=== PATIENT | male | born 1965 | race Caucasian/White ===

== ENCOUNTER 2018-08-30 06:09 | Inpatient (IN) | payer MEDICAID, OTHER ==
[~2018-08-30] VITALS: Ht 170.2 cm; Wt 77.1 kg
[~2018-08-30 06:09] MED LIST: AMLO-511 PO; ARGI500T4 PO; ARIP10TA8 PO; ASCO500 PO; IBUP-2070 PO; LISI-662 PO; LORA10TA7 PO; ONDA4 PO; [UNRECOGNIZED DRUG - CODE] PO; [UNRECOGNIZED DRUG - CODE] PO
[2018-08-30] MEDS ORDERED: RISP2 PO (06:47)
[2018-08-30 07:36] LABS: BASOPHILS % (AUTO) 0.9 % (0.0-2.0); EOSINOPHILS % (AUTO) 1.5 % (1.0-6.0); HEMATOCRIT 39.9 % (41-53); HEMOGLOBIN 13.6 g/dL (13.5-17.5); LYMPHOCYTES # (AUTO) 1.7 K/uL (1.0-4.8); LYMPHOCYTES % (AUTO) 28.7 % (22.0-44.0); MEAN CORPUSCULAR HEMOGLOBIN 30.9 pg (26.0-34.0); MEAN CORPUSCULAR HGB CONC 34.1 G/dL (31.0-37.0); MEAN CORPUSCULAR VOLUME 91 fL (80-100); MONOCYTES # (AUTO) 0.7 K/uL (0.1-1.0); NEUTROPHILS # (AUTO) 3.5 K/uL (1.8-7.7); NEUTROPHILS % (AUTO) 57.9 % (40.0-70.0); PLATELET COUNT (AUTO) 326 K/uL (150-450); RED CELL DISTRIBUTION WIDTH 13.2 % (11.5-14.5)
[2018-08-30 07:49] LABS: ANION GAP 8 mmol/L (8-16); CALCIUM, TOTAL 10.7 mg/dL (8.8-10.5); CARBON DIOXIDE 27 mmol/L (22-29); CHLORIDE 105 mmol/L (98-107); GLOMERULAR FILTR. RATE CALC > 60 mL/min (>60); GLUCOSE,RANDOM 107 mg/dL (70-110); POTASSIUM 3.8 mmol/L (3.5-5.1); SODIUM SERUM 140 mmol/L (136-145); UREA NITROGEN, BLOOD 14 mg/dL (7-18)
[2018-08-30 07:55] LABS: ALANINE AMINOTRANSFERASE 76 U/L (12-78); ALBUMIN 3.8 g/dL (3.4-5.0); ALKALINE PHOSPHATASE 77 U/L (46-116); ASPARTATE AMINOTRANSFERASE 40 U/L (15-37); BILIRUBIN,TOTAL 0.7 mg/dL (0.1-1.0); TOTAL PROTEIN, SERUM 7.7 g/dL (6.4-8.2)
[2018-08-30] MEDS ORDERED: IBUPROFEN 400 MG TABLET PO PRN ×2 (08:30→12:30)
[2018-08-30] MEDS ORDERED: HALOPERIDOL 5 MG TABLET PO PRN ×2 (08:30→09:15)
[2018-08-30] MEDS ORDERED: ZOLPIDEM TARTRATE 10 MG TABLET PO PRN (08:30)
[2018-08-30] MEDS ORDERED: ACETAMINOPHEN 325 MG TABLET PO PRN ×2 (08:30→12:30)
[2018-08-30] MEDS ORDERED: LORazepam 2 MG TABLET PO PRN (08:30)
[2018-08-30] MEDS ORDERED: PETROLATUM,WHITE 71 GM JELLY TP PRN (12:30)
[2018-08-30] MEDS ORDERED: ONDANSETRON HCL 4 MG TABLET PO PRN (12:30)
[2018-08-30] MEDS ORDERED: LOPERAMIDE HCL 2 MG CAPSULE PO PRN (12:30)
[2018-08-30] MEDS ORDERED: MAG HYDROX/AL HYDROX/SIMETH ES 30 ML SUSPENSION UDCUP PO PRN (12:30)
[2018-08-30] MEDS ORDERED: CloNIDine HCL 0.1 MG TABLET PO PRN (12:30)
[2018-08-30] MEDS ORDERED: DOCUSATE SODIUM 100 MG CAPSULE PO PRN (12:30)
[2018-08-30] MEDS ORDERED: ALBUTEROL SULFATE HFA 90 MCG/PUFF 8 GM INHALER IH PRN (12:30)
[2018-08-30] MEDS ORDERED: MAGNESIUM HYDROXIDE SUSPENSION 30 ML UDCUP PO PRN (12:30)
[2018-08-30] MEDS ORDERED: NICOTINE 14 MG/24 HOUR PATCH TD PRN (12:30)
[2018-08-30] MEDS ORDERED: GuaiFENesin/D-METHORPHAN [SUGAR-FREE] 200-20MG/10 ML SYRUP UDCUP PO PRN (12:30)
[2018-08-30] MEDS ORDERED: PNEUMOCOCCAL VACCINE POLYVALENT 0.5 ML VIAL [PPSV23] IM ONE (13:00)
[2018-08-30 13:25] VITALS: BP 116/74
[2018-08-30 16:15] VITALS: BP 115/85
[2018-08-30] MEDS: ZOLPIDEM TARTRATE 10 MG TABLET PO PRN (22:00)
[2018-08-31 06:11] VITALS: BP 126/79
[2018-08-31 08:35] LABS: BASOPHILS % (AUTO) 0.9 % (0.0-2.0); EOSINOPHILS % (AUTO) 5.2 % (1.0-6.0); HEMATOCRIT 39.3 % (41-53); HEMOGLOBIN 13.2 g/dL (13.5-17.5); LYMPHOCYTES # (AUTO) 1.7 K/uL (1.0-4.8); LYMPHOCYTES % (AUTO) 35.7 % (22.0-44.0); MEAN CORPUSCULAR HEMOGLOBIN 30.9 pg (26.0-34.0); MEAN CORPUSCULAR HGB CONC 33.5 G/dL (31.0-37.0); MEAN CORPUSCULAR VOLUME 92 fL (80-100); MONOCYTES # (AUTO) 0.7 K/uL (0.1-1.0); MONOCYTES % (AUTO) 13.6 % (2.0-9.0); NEUTROPHILS # (AUTO) 2.1 K/uL (1.8-7.7); NEUTROPHILS % (AUTO) 44.6 % (40.0-70.0); PLATELET COUNT (AUTO) 312 K/uL (150-450); RED BLOOD CELL COUNT(AUTO) 4.25 MIL/uL (4.50-5.90); RED CELL DISTRIBUTION WIDTH 13.4 % (11.5-14.5)
[2018-08-31] MEDS ORDERED: AmLODIPine BESYLATE 5 MG TABLET PO SCH (09:00)
[2018-08-31 09:30] LABS: AMPHET/METH SCREEN,URINE POSITIVE (NEGATIVE); BARBITURATE SCREEN, URINE NEGATIVE (NEGATIVE); BENZODIAZEPINES SCREEN,URINE NEGATIVE (NEGATIVE); CANNABINOID SCREEN,URINE NEGATIVE (NEGATIVE); COCAINE SCREEN,URINE NEGATIVE (NEGATIVE); METHADONE SCREEN, URINE NEGATIVE (NEGATIVE); OPIATE SCREEN,URINE NEGATIVE (NEGATIVE)
[2018-08-31 09:36] LABS: PHENCYCLIDINE SCREEN,URINE NEGATIVE (NEGATIVE)
[2018-08-31 09:41] LABS: ALANINE AMINOTRANSFERASE 63 U/L (12-78); ALKALINE PHOSPHATASE 70 U/L (46-116); ANION GAP 4 mmol/L (8-16); ASPARTATE AMINOTRANSFERASE 33 U/L (15-37); BILIRUBIN,TOTAL 0.5 mg/dL (0.1-1.0); CALCIUM, TOTAL 9.6 mg/dL (8.8-10.5); CARBON DIOXIDE 30 mmol/L (22-29); CHLORIDE 105 mmol/L (98-107); CHOL/HDL RATIO 2.2 (4.2-7.3); CHOLESTEROL 136 mg/dL (131-200); GLOMERULAR FILTR. RATE CALC > 60 mL/min (>60); GLUCOSE,RANDOM 76 mg/dL (70-110); HDL CHOLESTEROL 63 mg/dL (40-60); LDL CHOL (CALC.) 63 mg/dL (0-130); POTASSIUM 3.9 mmol/L (3.5-5.1); SODIUM SERUM 139 mmol/L (136-145); THYROID STIMULATING HORMONE 0.38 uIU/mL (0.36-3.74); TOTAL PROTEIN, SERUM 6.5 g/dL (6.4-8.2); TRIGLYCERIDES 51 mg/dL (15-150); UREA NITROGEN, BLOOD 16 mg/dL (7-18)
[2018-08-31 09:42] VITALS: BP 116/66
[2018-08-31 09:47] LABS: HEMOGLOBIN A1C 5.8 % (4.5-6.2)
[2018-08-31 09:53] LABS: APPEARANCE,URINE CLOUDY (CLEAR); BILIRUBIN,URINE NEGATIVE (NEGATIVE); GLUCOSE, URINE (UA) NEGATIVE (NEGATIVE); KETONES,URINE NEGATIVE (NEGATIVE); LEUKOCYTE ESTERASE ,URINE NEGATIVE (NEGATIVE); NITRATE,URINE NEGATIVE (NEGATIVE); OCCULT BLOOD,URINE NEGATIVE (NEGATIVE); PH,URINE 7.5 (5.0-8.0); PROTEIN,URINE NEGATIVE (NEGATIVE)
[2018-08-31 10:18] LABS: BACTERIA,URINE None Seen /HPF (None Seen); CALCIUM OXALATE CRYSTALS,UR Few /LPF (None Seen); RBC,URINE None Seen /HPF (0-2); SQUAMOUS EPITHELIAL CELL,UR Few /LPF (None Seen); WBC,URINE None Seen /HPF (0-5)
[2018-08-31] MEDS: ARIPiprazole 10 MG TABLET PO SCH (12:48)
[2018-08-31 17:34] VITALS: BP 131/69
[2018-08-31 20:10] VITALS: BP 125/82
[2018-08-31] MEDS: ZOLPIDEM TARTRATE 10 MG TABLET PO PRN (20:10)
[2018-09-01 01:41] VITALS: BP 121/87
[2018-09-01 08:07] VITALS: BP 134/81
[2018-09-01] MEDS: LISINOPRIL 20 MG TABLET PO SCH (08:35)
[2018-09-01] MEDS: ARIPiprazole 10 MG TABLET PO SCH (08:35)
[2018-09-01] MEDS: AmLODIPine BESYLATE 10 MG TABLET PO SCH (08:35)
[2018-09-01 16:11] VITALS: BP 120/82
[2018-09-01] MEDS: ZOLPIDEM TARTRATE 10 MG TABLET PO PRN (22:52)
[2018-09-02 00:48] VITALS: BP 112/65
[2018-09-02 08:20] VITALS: BP 136/85
[2018-09-02] MEDS: AmLODIPine BESYLATE 10 MG TABLET PO SCH (08:33)
[2018-09-02] MEDS: SERTRALINE HCL 50 MG TABLET PO SCH (08:33)
[2018-09-02] MEDS: ARIPiprazole 10 MG TABLET PO SCH (08:33)
[2018-09-02] MEDS: LISINOPRIL 20 MG TABLET PO SCH (08:33)
[2018-09-02 16:49] VITALS: BP 137/86
[2018-09-02 20:20] VITALS: BP 123/63
[2018-09-02] MEDS: ZOLPIDEM TARTRATE 10 MG TABLET PO PRN (20:20)
[2018-09-03 00:59] VITALS: BP 137/82
[2018-09-03] MEDS: LORazepam 2 MG TABLET PO PRN (03:00)
[2018-09-03 08:24] VITALS: BP 150/89
[2018-09-03] MEDS: LISINOPRIL 20 MG TABLET PO SCH (08:41)
[2018-09-03] MEDS: SERTRALINE HCL 50 MG TABLET PO SCH (08:41)
[2018-09-03] MEDS: ARIPiprazole 10 MG TABLET PO SCH (08:41)
[2018-09-03] MEDS: AmLODIPine BESYLATE 10 MG TABLET PO SCH (08:42)
[2018-09-03 16:22] VITALS: BP 113/70
[2018-09-03] MEDS ORDERED: RisperiDONE 2 MG TABLET PO SCH (21:00)
[2018-09-04 00:25] VITALS: BP 129/81
[2018-09-04] MEDS: LORazepam 2 MG TABLET PO PRN (04:37)
[2018-09-04] MEDS: AmLODIPine BESYLATE 10 MG TABLET PO SCH (08:05)
[2018-09-04] MEDS: LISINOPRIL 20 MG TABLET PO SCH (08:05)
[2018-09-04] MEDS: ARIPiprazole 10 MG TABLET PO SCH (08:05)
[2018-09-04] MEDS: SERTRALINE HCL 50 MG TABLET PO SCH (08:05)
[2018-09-04 08:23] VITALS: BP 123/88
[2018-09-04] MEDS ORDERED: SERT50TA12 PO (10:32)
[2018-09-04] MEDS ORDERED: RISP2 PO (10:32)
== END 2018-09-04 13:05 | disposition home or self-care (01) | DRG 751 ==
LOC: EMS 06:09 → B2S 09:57
PROVIDERS: ADMIT Psychiatry & Neurology Psychiatry; ATTEND Psychiatry & Neurology Psychiatry
DX: F33.2 Major depressive disorder, recurrent severe without psychotic features (principal); R45.851 Suicidal ideations; E83.52 Hypercalcemia; D64.9 Anemia, unspecified; F10.10 Alcohol abuse, uncomplicated; F15.90 Other stimulant use, unspecified, uncomplicated; F32.1 Major depressive disorder, single episode, moderate; F41.9 Anxiety disorder, unspecified; I10 Essential (primary) hypertension; Z96.659 Presence of unspecified artificial knee joint
CPT/HCPCS: 80307; 83036; 84443; 87081; 90732; G0480

== ENCOUNTER 2019-01-15 06:28 | Inpatient (IN) | payer MEDICAID, OTHER ==
[~2019-01-15] VITALS: Ht 170.2 cm; Wt 79.0 kg
[~2019-01-15 06:28] MED LIST changes: -AMLO-511 PO; +AMLO5TAB9 PO; -ARGI500T4 PO; -ARIP10TA8 PO; -ASCO500 PO; -IBUP-2070 PO; -LORA10TA7 PO; -ONDA4 PO; +RISP2 PO; +SERT50TA12 PO; -[UNRECOGNIZED DRUG - CODE] PO; -[UNRECOGNIZED DRUG - CODE] PO
[2019-01-15 07:33] LABS: ANION GAP 12 mmol/L (8-16); BASOPHILS % (AUTO) 0.8 % (0.0-2.0); CALCIUM, TOTAL 11.1 mg/dL (8.8-10.5); CARBON DIOXIDE 27 mmol/L (22-29); CHLORIDE 102 mmol/L (98-107); CREATININE 1.41 mg/dL (0.60-1.30); EOSINOPHILS % (AUTO) 0.1 % (1.0-6.0); GLOMERULAR FILTR. RATE CALC 53 mL/min (>60); GLUCOSE,RANDOM 112 mg/dL (70-110); HEMATOCRIT 46.3 % (41-53); HEMOGLOBIN 15.4 g/dL (13.5-17.5); LYMPHOCYTES # (AUTO) 1.7 K/uL (1.0-4.8); LYMPHOCYTES % (AUTO) 13.7 % (22.0-44.0); MEAN CORPUSCULAR HEMOGLOBIN 30.6 pg (26.0-34.0); MEAN CORPUSCULAR HGB CONC 33.3 G/dL (31.0-37.0); MEAN CORPUSCULAR VOLUME 92 fL (80-100); MONOCYTES # (AUTO) 1.5 K/uL (0.1-1.0); MONOCYTES % (AUTO) 11.9 % (2.0-9.0); NEUTROPHILS # (AUTO) 9.4 K/uL (1.8-7.7); NEUTROPHILS % (AUTO) 73.5 % (40.0-70.0); PLATELET COUNT (AUTO) 361 K/uL (150-450); POTASSIUM 3.7 mmol/L (3.5-5.1); RED BLOOD CELL COUNT(AUTO) 5.04 MIL/uL (4.50-5.90); SODIUM SERUM 141 mmol/L (136-145); UREA NITROGEN, BLOOD 15 mg/dL (7-18)
[2019-01-15 07:40] LABS: ALANINE AMINOTRANSFERASE 77 U/L (12-78); ALBUMIN 4.1 g/dL (3.4-5.0); ALKALINE PHOSPHATASE 105 U/L (46-116); ASPARTATE AMINOTRANSFERASE 33 U/L (15-37); BILIRUBIN,TOTAL 0.5 mg/dL (0.1-1.0); TOTAL PROTEIN, SERUM 8.4 g/dL (6.4-8.2)
[2019-01-15 08:11] LABS: AMPHET/METH SCREEN,URINE POSITIVE (NEGATIVE); BARBITURATE SCREEN, URINE NEGATIVE (NEGATIVE); BENZODIAZEPINES SCREEN,URINE NEGATIVE (NEGATIVE); CANNABINOID SCREEN,URINE NEGATIVE (NEGATIVE); COCAINE SCREEN,URINE NEGATIVE (NEGATIVE); METHADONE SCREEN, URINE NEGATIVE (NEGATIVE); OPIATE SCREEN,URINE NEGATIVE (NEGATIVE)
[2019-01-15 08:13] LABS: PHENCYCLIDINE SCREEN,URINE NEGATIVE (NEGATIVE)
[2019-01-15] MEDS ORDERED: ZOLPIDEM TARTRATE 10 MG TABLET PO PRN (10:00)
[2019-01-15] MEDS ORDERED: LORazepam 2 MG TABLET PO PRN (10:00)
[2019-01-15] MEDS ORDERED: HALOPERIDOL 5 MG TABLET PO PRN (10:00)
[2019-01-15 18:25] VITALS: BP 152/89
[2019-01-16 06:48] LABS: CHOL/HDL RATIO 2.2 (4.2-7.3); FREE T4 (FREE THYROXINE) 1.16 ng/dL (0.76-1.46); THYROID STIMULATING HORMONE 1.49 uIU/mL (0.36-3.74)
[2019-01-16] MEDS: LISINOPRIL 20 MG TABLET PO SCH (09:23)
[2019-01-16] MEDS: AmLODIPine BESYLATE 10 MG TABLET PO SCH (09:23)
[2019-01-16 10:52] VITALS: BP 119/73
[2019-01-16] MEDS ORDERED: MIRT15 PO (10:58)
[2019-01-16] MEDS ORDERED: RISP4 PO (10:58)
[2019-01-16] MEDS ORDERED: BENZ1TAB10 PO (10:58)
[2019-01-16] MEDS ORDERED: MAGNESIUM HYDROXIDE SUSPENSION 30 ML UDCUP PO PRN (13:00)
[2019-01-16] MEDS ORDERED: MAG HYDROX/AL HYDROX/SIMETH ES 30 ML SUSPENSION UDCUP PO PRN (13:00)
[2019-01-16] MEDS ORDERED: ONDANSETRON HCL 4 MG TABLET PO PRN (13:00)
[2019-01-16] MEDS ORDERED: DOCUSATE SODIUM 100 MG CAPSULE PO PRN (13:00)
[2019-01-16] MEDS ORDERED: IBUPROFEN 400 MG TABLET PO PRN (13:00)
[2019-01-16] MEDS ORDERED: LOPERAMIDE HCL 2 MG CAPSULE PO PRN (13:00)
[2019-01-16] MEDS ORDERED: ACETAMINOPHEN 325 MG TABLET PO PRN (13:00)
[2019-01-16] MEDS ORDERED: NICOTINE 14 MG/24 HOUR PATCH TD PRN (13:00)
[2019-01-16] MEDS ORDERED: GuaiFENesin/D-METHORPHAN [SUGAR-FREE] 200-20MG/10 ML SYRUP UDCUP PO PRN (13:00)
[2019-01-16] MEDS ORDERED: ALBUTEROL SULFATE HFA 90 MCG/PUFF 8 GM INHALER IH PRN (13:00)
[2019-01-16] MEDS ORDERED: CloNIDine HCL 0.1 MG TABLET PO PRN (13:00)
[2019-01-16] MEDS ORDERED: PETROLATUM,WHITE 28 GM JELLY TP PRN (13:00)
[2019-01-16] MEDS: RisperiDONE 2 MG TABLET PO SCH (20:31)
[2019-01-16] MEDS: MIRTAZAPINE 15 MG TABLET PO SCH (20:32)
[2019-01-16 20:44] VITALS: BP 114/62
[2019-01-17 08:00] VITALS: BP 121/77
[2019-01-17] MEDS: LISINOPRIL 20 MG TABLET PO SCH (08:19)
[2019-01-17] MEDS: AmLODIPine BESYLATE 10 MG TABLET PO SCH (08:19)
[2019-01-17] MEDS ORDERED: AmLODIPine BESYLATE 5 MG TABLET PO SCH (09:00)
[2019-01-17 09:19] VITALS: BP 105/70
[2019-01-17 16:59] VITALS: BP 149/80
[2019-01-17] MEDS: RisperiDONE 2 MG TABLET PO SCH (20:22)
[2019-01-17] MEDS: MIRTAZAPINE 15 MG TABLET PO SCH (20:23)
[2019-01-18] MEDS: LISINOPRIL 20 MG TABLET PO SCH (09:37)
[2019-01-18] MEDS: AmLODIPine BESYLATE 10 MG TABLET PO SCH (09:37)
[2019-01-18 09:52] VITALS: BP 121/82
[2019-01-18] MEDS ORDERED: RISP2 PO (12:23)
[2019-01-18] MEDS ORDERED: MIRT15 PO (12:23)
[2019-01-18] MEDS ORDERED: AMLO10TA7 PO (14:18)
== END 2019-01-18 15:10 | disposition home or self-care (01) | DRG 750 ==
LOC: EMS 06:30 → 3EI 16:41
DX: F25.1 Schizoaffective disorder, depressive type (principal); E83.52 Hypercalcemia; R45.851 Suicidal ideations; D64.9 Anemia, unspecified; D72.829 Elevated white blood cell count, unspecified; F15.10 Other stimulant abuse, uncomplicated; I12.9 Hypertensive chronic kidney disease with stage 1 through stage 4 chronic kidney disease, or unspecified chronic kidney disease; Z96.659 Presence of unspecified artificial knee joint; N18.9 Chronic kidney disease, unspecified; M19.90 Unspecified osteoarthritis, unspecified site; Z59.0 Homelessness; Z65.3 Problems related to other legal circumstances; Z79.899 Other long term (current) drug therapy; Z91.5 Personal history of self-harm; Z71.51 Drug abuse counseling and surveillance of drug abuser
CPT/HCPCS: 84439; 84443; G0480

== ENCOUNTER 2024-04-11 10:29 | Inpatient (IN) | payer MEDICAID, OTHER ==
[~2024-04-11] VITALS: Ht 170.2 cm; Wt 72.7 kg
[~2024-04-11 10:29] MED LIST changes: +AMLO-258 PO; -AMLO5TAB9 PO; -LISI-662 PO; +LISI-894 PO; +MIRT-89 PO; -RISP2 PO; +RISP2TAB45 PO; -SERT50TA12 PO
[2024-04-11 10:38] VITALS: TEMP 98.4
[2024-04-11 11:06] LABS: BASOPHILS % (AUTO) 1.3 % (0.0-2.0); EOSINOPHILS % (AUTO) 1.2 % (1.0-6.0); HEMATOCRIT 42.7 % (41-53); LYMPHOCYTES # (AUTO) 1.8 K/uL (1.0-4.8); LYMPHOCYTES % (AUTO) 29.7 % (22.0-44.0); MEAN CORPUSCULAR HEMOGLOBIN 31.1 pg (26.0-34.0); MEAN CORPUSCULAR HGB CONC 32.9 G/dL (31.0-37.0); MEAN CORPUSCULAR VOLUME 95 fL (80-100); MONOCYTES # (AUTO) 0.6 K/uL (0.1-1.0); MONOCYTES % (AUTO) 9.8 % (2.0-9.0); NEUTROPHILS # (AUTO) 3.5 K/uL (1.8-7.7); PLATELET COUNT (AUTO) 271 K/uL (150-450); RED BLOOD CELL COUNT(AUTO) 4.51 MIL/uL (4.50-5.90); RED CELL DISTRIBUTION WIDTH 13.8 % (11.5-14.5)
[2024-04-11 11:14] LABS: ANION GAP 7 mmol/L (8-16); CALCIUM, TOTAL 9.8 mg/dL (8.8-10.5); CARBON DIOXIDE 29 mmol/L (22-29); CHLORIDE 101 mmol/L (98-107); CREATININE 0.91 mg/dL (0.60-1.30); GLOMERULAR FILTR. RATE CALC > 60 mL/min (>60); GLUCOSE,RANDOM 83 mg/dL (70-110); SODIUM SERUM 137 mmol/L (136-145); UREA NITROGEN, BLOOD 15 mg/dL (7-18)
[2024-04-11 11:26] LABS: COVID AG,FIA SOURCE NASAL SWAB
[2024-04-11] MEDS ORDERED: ZOLPIDEM TARTRATE 10 MG TABLET PO PRN (11:30)
[2024-04-11] MEDS ORDERED: HALOPERIDOL 5 MG TABLET PO PRN (11:30)
[2024-04-11] MEDS ORDERED: LORazepam 2 MG TABLET PO PRN (11:30)
[2024-04-11 11:34] LABS: ALCOHOL, BLOOD (SERUM) < 3 mg/dL (0-10)
[2024-04-11 12:02] LABS: SARS-COV2 (COVID) ANTIGEN,FIA Negative (Negative)
[2024-04-11 12:39] LABS: ALCOHOL, URINE DRUG SCREEN NEGATIVE (NEGATIVE); AMPHET/METH SCREEN,URINE POSITIVE (NEGATIVE); BARBITURATE SCREEN, URINE NEGATIVE (NEGATIVE); BENZODIAZEPINES SCREEN,URINE NEGATIVE (NEGATIVE); CANNABINOID SCREEN,URINE POSITIVE (NEGATIVE); COCAINE SCREEN,URINE NEGATIVE (NEGATIVE); METHADONE SCREEN, URINE NEGATIVE (NEGATIVE); OPIATE SCREEN,URINE NEGATIVE (NEGATIVE); PHENCYCLIDINE SCREEN,URINE NEGATIVE (NEGATIVE)
[2024-04-11 12:46] VITALS: BP 142/90; PULSE 82; RESP 16; O2SAT 98
[2024-04-11 12:59] LABS: APPEARANCE,URINE HAZY (CLEAR); BILIRUBIN,URINE NEGATIVE (NEGATIVE); COLOR,URINE YELLOW (YELLOW); GLUCOSE, URINE (UA) NEGATIVE (NEGATIVE); KETONES,URINE NEGATIVE (NEGATIVE); LEUKOCYTE ESTERASE ,URINE LARGE (NEGATIVE); NITRATE,URINE POSITIVE (NEGATIVE); OCCULT BLOOD,URINE MODERATE (NEGATIVE); PROTEIN,URINE TRACE mg/dL (NEGATIVE); SPECIFIC GRAVITIY, URINE 1.016 (1.003-1.030); UROBILINOGEN,URINE <=1.0 mg/dL (<=1.0)
[2024-04-11 13:03] LABS: WBC,URINE 26-50 /HPF (0-5)
[2024-04-11 13:04] LABS: BACTERIA,URINE Many /HPF (None Seen)
[2024-04-11] MEDS ORDERED: CEPH-558 PO (14:02)
[2024-04-11] MEDS: CEPHALEXIN MONOHYDRATE 500 MG CAPSULE PO ONE (14:06)
== END 2024-04-12 06:35 | disposition home or self-care (01) | DRG 750 ==
LOC: EMS 10:29 → B2S 14:56 → EMS 16:18
PROVIDERS: ADMIT Psychiatry & Neurology Psychiatry; ATTEND Psychiatry & Neurology Child & Adolescent Psychiatry
DX: F25.1 Schizoaffective disorder, depressive type (principal); R45.851 Suicidal ideations; F15.10 Other stimulant abuse, uncomplicated; F12.10 Cannabis abuse, uncomplicated; I10 Essential (primary) hypertension; N39.0 Urinary tract infection, site not specified; Z96.659 Presence of unspecified artificial knee joint; Z20.822 Contact with and (suspected) exposure to COVID-19
CPT/HCPCS: 80048; 80307; 81001; 85025; 87077; 87086; 87186; 99285; G0480

== ENCOUNTER 2024-05-30 10:01 | Emergency (ER) | payer MEDICAID, OTHER ==
[~2024-05-30] VITALS: Ht 170.2 cm; Wt 63.6 kg
[~2024-05-30 10:01] MED LIST changes: +CEPH-558 PO
[2024-05-30 10:33] LABS: BASOPHILS % (AUTO) 1.2 % (0.0-2.0); EOSINOPHILS % (AUTO) 2.6 % (1.0-6.0); HEMATOCRIT 43.5 % (41-53); HEMOGLOBIN 14.5 g/dL (13.5-17.5); LYMPHOCYTES # (AUTO) 1.7 K/uL (1.0-4.8); LYMPHOCYTES % (AUTO) 24.7 % (22.0-44.0); MEAN CORPUSCULAR HEMOGLOBIN 31.4 pg (26.0-34.0); MEAN CORPUSCULAR HGB CONC 33.2 G/dL (31.0-37.0); MEAN CORPUSCULAR VOLUME 95 fL (80-100); MONOCYTES # (AUTO) 0.6 K/uL (0.1-1.0); MONOCYTES % (AUTO) 9.6 % (2.0-9.0); NEUTROPHILS # (AUTO) 4.2 K/uL (1.8-7.7); NEUTROPHILS % (AUTO) 61.9 % (40.0-70.0); PLATELET COUNT (AUTO) 289 K/uL (150-450); RED CELL DISTRIBUTION WIDTH 13.4 % (11.5-14.5); WHITE BLOOD COUNT (AUTO) 6.7 K/uL (4.5-11.0)
[2024-05-30 12:12] LABS: ANION GAP 6 mmol/L (8-16); CALCIUM, TOTAL 9.8 mg/dL (8.8-10.5); CARBON DIOXIDE 29 mmol/L (22-29); CHLORIDE 105 mmol/L (98-107); CREATININE 1.09 mg/dL (0.60-1.30); GLOMERULAR FILTR. RATE CALC > 60 mL/min (>60); GLUCOSE,RANDOM 94 mg/dL (70-110); POTASSIUM 4.7 mmol/L (3.5-5.1); SODIUM SERUM 140 mmol/L (136-145); UREA NITROGEN, BLOOD 14 mg/dL (7-18)
[2024-05-30 12:31] LABS: APPEARANCE,URINE HAZY (CLEAR); BILIRUBIN,URINE NEGATIVE (NEGATIVE); COLOR,URINE LIGHT YELLOW (YELLOW); GLUCOSE, URINE (UA) NEGATIVE (NEGATIVE); KETONES,URINE NEGATIVE (NEGATIVE); LEUKOCYTE ESTERASE ,URINE LARGE (NEGATIVE); NITRATE,URINE POSITIVE (NEGATIVE); OCCULT BLOOD,URINE SMALL (NEGATIVE); PH,URINE 6.5 (5.0-8.0); PROTEIN,URINE NEGATIVE (NEGATIVE); SPECIFIC GRAVITIY, URINE 1.016 (1.003-1.030); UROBILINOGEN,URINE <=1.0 mg/dL (<=1.0)
[2024-05-30 12:41] LABS: BACTERIA,URINE Many /HPF (None Seen)
[2024-05-30 12:42] LABS: WBC,URINE 51-100 /HPF (0-5)
[2024-05-30 13:29] VITALS: TEMP 97.9
[2024-05-30] MEDS ORDERED: CEPH-558 PO (13:30)
[2024-05-30] MEDS ORDERED: TAMS0.4C94 PO (13:30)
[2024-05-30] MEDS: CEPHALEXIN MONOHYDRATE 500 MG CAPSULE PO ONE (13:49)
[2024-05-30 14:02] VITALS: BP 161/95; PULSE 76; RESP 18; O2SAT 99
== END 2024-05-30 14:19 | disposition home or self-care (01) ==
LOC: EMS 10:03
DX: N39.0 Urinary tract infection, site not specified (principal); N32.0 Bladder-neck obstruction; F32.A Depression, unspecified; I10 Essential (primary) hypertension; F15.90 Other stimulant use, unspecified, uncomplicated; Z96.659 Presence of unspecified artificial knee joint
CPT/HCPCS: 51702; 80048; 81001; 83880; 85025; 87077; 87086; 87186; 99284